=== PATIENT | female | born 1990 | race Caucasian/White ===

== ENCOUNTER 2020-12-18 16:55 | Emergency (ER) | payer MEDICAID ==
[~2020-12-18] VITALS: Ht 160 cm; Wt 116.6 kg
[~2020-12-18 16:55] MED LIST: GABA100C PO; GABA300S PO; LACT1CAP35 PO; LITH8SOL PO; LITHIUM PO; PARO10OR3 PO; PRAZOSIN PO; SULF-23 PO
--- NOTE | 2020-12-18 18:06 | NUR ---
assumed care of pt, she c/o of sob, cough x2 days. pain w/ coughing. on bp and spo2 monitor. vss. nadn, call light w/in reach.
--- NOTE | 2020-12-18 18:53 | NUR ---
SBAR REPORT GIVEN TO DEZ
[2020-12-18] MEDS ORDERED: ALBUTEROL/IPRATROPIUM 2.5MG/0.5MG, 3 ML ONE (18:59)
[2020-12-18] MEDS ORDERED: ALBUTEROL/IPRATROPIUM 2.5MG/0.5MG, 3 ML NPPB ONE (19:00)
--- NOTE | 2020-12-18 19:02 | NUR ---
pt medicated per aug. RT BEDSIDE. nadn, call light w/in reach
[2020-12-18 19:17] VITALS: BP 118/93
--- NOTE | 2020-12-18 19:17 | NUR ---
PT. REPORTS FEELING MUCH BETTER AFTER BREATHING TX. DENIES NEEDS AT THIS TIME.
== END 2020-12-18 19:51 | disposition home or self-care (01) ==
LOC: ED 19:45
DX: J98.01 Acute bronchospasm (principal); R00.1 Bradycardia, unspecified; R06.02 Shortness of breath; F17.200 Nicotine dependence, unspecified, uncomplicated
CPT/HCPCS: 71045; 93005; 94640; 99283; J7512

== ENCOUNTER 2021-01-21 13:58 | Emergency (ER) | payer SELFPAY ==
--- NOTE | 2021-01-21 15:22 | NUR ---
CALLED FOR TRIAGE, NO ANSWER
--- NOTE | 2021-01-21 15:32 | NUR ---
CALLED FOR TRIAGE, NO ANSWER
--- NOTE | 2021-01-21 15:50 | NUR ---
CALLED FOR TRIAGE, NO ANSWER
== END 2021-01-21 15:51 | disposition left against medical advice (07) ==
LOC: ED 14:15
DX: Z53.21 Procedure and treatment not carried out due to patient leaving prior to being seen by health care provider (principal)

== ENCOUNTER 2021-01-29 17:33 | Emergency (ER) | payer MEDICAID ==
[~2021-01-29] VITALS: Ht 160 cm; Wt 118.0 kg
--- NOTE | 2021-01-29 17:58 | NUR ---
ALLERGY AND IMMUNOLOGY CHIEF: PT PROVIDED URINE SAMPLE. UA COLLECTED AND SENT TO LAB.
[2021-01-29 18:09] LABS: MICROSCOPIC NOT IND
--- NOTE | 2021-01-29 18:36 | NUR ---
produce sorter: Pt ambulatory to room from lobby at this time.
[2021-01-29 18:48] LABS: ALANINE AMINOTRANSFERASE 61 U/L (12-78); ALBUMIN 3.2 g/dL (3.4-5.0); ANION GAP 5 mmol/L (5-15); CALCIUM 9.4 mg/dL (8.5-10.1); CHLORIDE 107 mmol/L (98-107); CREATININE 0.74 mg/dL (0.55-1.02)
[2021-01-29 18:52] LABS: ALKALINE PHOSPHATASE 99 U/L (45-117); BASOPHILS % (AUTO) 1 % (0-1); BILIRUBIN,TOTAL 0.2 mg/dL (0.2-1.0); EOSINOPHILS % (AUTO) 2 % (1-7); LYMPHOCYTES % (AUTO) 22 % (22-44); MEAN CORPUSCULAR HEMOGLOBIN 29.3 pg (27.0-34.8); MEAN CORPUSCULAR HGB CONC 34.2 g/dL (32.4-35.8); MEAN PLATELET VOLUME 8.5 fL (7.4-10.4); MONOCYTES % (AUTO) 6 % (2-9); NEUTROPHILS % (AUTO) 69 % (42-75); PLATELET COUNT 352 x10^3/uL (130-400); RED BLOOD COUNT 4.87 x10^6/uL (3.82-5.3); RED CELL DISTRIBUTION WIDTH 13.2 % (9.6-15.2); TOTAL PROTEIN 7.7 g/dL (6.4-8.2)
[2021-01-29 19:07] VITALS: BP 116/83
--- NOTE | 2021-01-29 19:09 | NUR ---
Break RN: patient presents to ER c/o LLQ and left flank pain since this morning. Also c/o N/V. Denies diarrhea. States she has increased urinary frequency; no dysuria. Patient has a hx of kidney stones and kidney infections but "this feels different. It is more of a sharp pain vs a dull pain." Patient is in NAd. Respirations even and unlabored.
--- NOTE | 2021-01-29 19:42 | NUR ---
US AT BS.
--- NOTE | 2021-01-29 20:52 | NUR ---
REPORT TO MATTEO, TRANSFER OF CARE AT THIS TIME.
--- NOTE | 2021-01-29 20:56 | NUR ---
Patient given discharge instructions and they have confirmed that they understand the instructions. Patient ambulatory with steady gait. NAD, all questions answered appropriately, denies additional needs at this time. No personal belongings left in room after discharge.
== END 2021-01-29 20:58 | disposition home or self-care (01) ==
LOC: ED 20:51
DX: O26.891 Other specified pregnancy related conditions, first trimester (principal); R10.12 Left upper quadrant pain; R30.0 Dysuria; Z3A.01 Less than 8 weeks gestation of pregnancy
CPT/HCPCS: 36415; 76801; 80053; 81003; 83690; 84702; 84703; 85025; 99284

== ENCOUNTER 2021-01-30 22:25 | Emergency (ER) | payer MEDICAID ==
[~2021-01-30] VITALS: Ht 160 cm; Wt 120.0 kg
--- NOTE | 2021-01-30 23:53 | NUR ---
AGRICULTURAL PRODUCTION ENGINEER: PT. TO ROOM FROM LOBBY AT THIS TIME.
[2021-01-31] LABS: BASOPHILS % (AUTO) 0 % (0-1); EOSINOPHILS % (AUTO) 2 % (1-7); LYMPHOCYTES % (AUTO) 15 % (22-44); MEAN CORPUSCULAR HEMOGLOBIN 28.8 pg (27.0-34.8); MEAN CORPUSCULAR HGB CONC 33.6 g/dL (32.4-35.8); MEAN PLATELET VOLUME 8.5 fL (7.4-10.4); MONOCYTES % (AUTO) 5 % (2-9); NEUTROPHILS % (AUTO) 78 % (42-75); PLATELET COUNT 317 x10^3/uL (130-400); RED CELL DISTRIBUTION WIDTH 13.2 % (9.6-15.2)
[2021-01-31 00:01] VITALS: BP 118/56
[2021-01-31 00:08] LABS: ALBUMIN 3.1 g/dL (3.4-5.0); ANION GAP 6 mmol/L (5-15); CALCIUM 8.9 mg/dL (8.5-10.1); CHLORIDE 107 mmol/L (98-107)
[2021-01-31 00:16] LABS: ALANINE AMINOTRANSFERASE 55 U/L (12-78); ALKALINE PHOSPHATASE 93 U/L (45-117); BILIRUBIN,TOTAL 0.2 mg/dL (0.2-1.0); CREATININE 0.69 mg/dL (0.55-1.02); TOTAL PROTEIN 7.3 g/dL (6.4-8.2)
[2021-01-31] MEDS ORDERED: HYDROcodone/APAP 5/325 TABLET ONE (00:56)
[2021-01-31] MEDS ORDERED: HYDROcodone/APAP 5/325 TABLET PO ONE (01:00)
[2021-01-31 01:39] LABS: MICROSCOPIC INDICATED
--- NOTE | 2021-01-31 01:57 | NUR ---
DOCUMENT EXAMINER: PT. WAS D/C PRIOR TO RECEIVING RHOGAM. DR. MÉNDEZ CALLED PT. AND PT. IS COMING BACK TO ED FOR RHOGAM.
--- NOTE | 2021-01-31 02:33 | NUR ---
CARTON LETTERING MACHINE OPERATOR: PT. HAS NOT RETURNED TO ED YET AT THIS TIME.
--- NOTE | 2021-01-31 03:26 | NUR ---
CORPORATE BOND TRADER: CALLED PT. AGAIN ABOUT RETURN TO ED FOR RHOGAM. MESSAGE LEFT.
--- NOTE | 2021-01-31 04:07 | NUR ---
PROCESSOR SOLID PROPELLANT: PT. HAS NOT RETURNED TO ED. NOTE MADE IN REMINDERS TAB.
== END 2021-01-31 04:08 | disposition home or self-care (01) ==
LOC: ED 01-31 01:13
DX: O03.4 Incomplete spontaneous abortion without complication (principal); R10.30 Lower abdominal pain, unspecified; M54.5 Low back pain; Z3A.01 Less than 8 weeks gestation of pregnancy
CPT/HCPCS: 36415; 76801; 80053; 81001; 84702; 85025; 86850; 86900; 87086; 99284

== ENCOUNTER 2021-01-31 09:21 | Emergency (ER) | payer MEDICAID ==
[~2021-01-31] VITALS: Ht 160 cm; Wt 118.0 kg
--- NOTE | 2021-01-31 09:53 | NUR ---
PT PRESENTS TO ED FOR RHOGAM FOLLOWING MISCARRIAGE YESTERDAY. PT SEEN IN ED YESTERDAY. PT REPORTS PERSISTING LOWER ABDOMINAL AND LOW BACK PAIN. AWAITING ERMD EVAL.
[2021-01-31] MEDS ORDERED: RHOGAM FROM BLOOD BANK 1 NOTE EA IM/IV ONE (10:30)
[2021-01-31] MEDS ORDERED: HYDROcodone/APAP 5/325 TABLET ONE (10:58)
[2021-01-31] MEDS ORDERED: HYDROcodone/APAP 5/325 TABLET PO ONE (11:00)
--- NOTE | 2021-01-31 11:15 | NUR ---
CALL TO BLOOD BANK FOR UPDATE ON RHOGAM. PER BLOOD BANK, THEY HAVE FULL ORDER AND SET UP FROM PREVIOUS VISIT EARLIER TODAY/LAST NIGHT. COMPLETE NEW ORDER SET NEEDED.
--- NOTE | 2021-01-31 12:21 | NUR ---
CALL TO BLOOD BANK TO CHECK ON RHOGAM. PER BLOOD BANK "GIVE US 25 MINUTES."
--- NOTE | 2021-01-31 13:12 | NUR ---
SARA ARROYO AWARE OF RHOGAM ADMINISTRATION. DC PAPERWORK PREPARATION UNDERWAY BY SARA. PT LAYING FLAT IN BED USING CELL PHONE. NAD NOTED.
[2021-01-31 13:44] VITALS: BP 117/67
== END 2021-01-31 13:47 | disposition home or self-care (01) ==
LOC: ED 09:44
DX: O20.0 Threatened abortion (principal); Z3A.01 Less than 8 weeks gestation of pregnancy
CPT/HCPCS: 36415; 86850; 86900; 96372; 99283; J2790

== ENCOUNTER 2021-02-11 04:53 | Emergency (ER) | payer MEDICAID ==
[~2021-02-11] VITALS: Ht 160 cm; Wt 116.2 kg
[2021-02-11 04:55] VITALS: BP 122/85
--- NOTE | 2021-02-11 05:36 | NUR ---
NIL X 1
--- NOTE | 2021-02-11 05:46 | NUR ---
NIL X 2
== END 2021-02-11 05:56 | disposition left against medical advice (07) ==
LOC: ED 05:10
DX: R06.02 Shortness of breath (principal); Z53.21 Procedure and treatment not carried out due to patient leaving prior to being seen by health care provider
CPT/HCPCS: 93005

== ENCOUNTER 2021-02-20 11:37 | Emergency (ER) | payer MEDICAID ==
[~2021-02-20] VITALS: Ht 160 cm; Wt 117.0 kg
[2021-02-20 11:50] VITALS: BP 135/81
--- NOTE | 2021-02-20 11:56 | NUR ---
Patient given discharge instructions and Rx, they have confirmed that they understand the instructions. Patient ambulatory with steady gait.
== END 2021-02-20 12:49 | disposition home or self-care (01) ==
LOC: ED 12:45
DX: F41.9 Anxiety disorder, unspecified (principal); Z20.822 Contact with and (suspected) exposure to COVID-19; R50.9 Fever, unspecified; Z76.0 Encounter for issue of repeat prescription; Z90.49 Acquired absence of other specified parts of digestive tract; Z88.8 Allergy status to other drugs, medicaments and biological substances
CPT/HCPCS: 99283; U0003; U0005